=== PATIENT | female | born 1940 | race Two or more races ===

== ENCOUNTER 2019-10-31 05:20 | Day surgery (SDC) | payer OTHER | END 2019-10-31 12:50 | disposition home or self-care (01) | LOC: AMB-ENDOS 05:20 → ADM 12:45 → AMB-ENDOS 12:45 | PROVIDERS: ATTEND Surgery | DX: D13.1 Benign neoplasm of stomach (principal); D13.2 Benign neoplasm of duodenum; K29.50 Unspecified chronic gastritis without bleeding; K44.9 Diaphragmatic hernia without obstruction or gangrene ==

== ENCOUNTER 2021-11-08 06:05 | Day surgery (SDC) | payer OTHER | END 2021-11-08 12:40 | disposition home or self-care (01) | LOC: AMB-ENDOS 06:05 | PROVIDERS: ATTEND Surgery | DX: K29.70 Gastritis, unspecified, without bleeding (principal); K29.50 Unspecified chronic gastritis without bleeding; K44.9 Diaphragmatic hernia without obstruction or gangrene; K21.9 Gastro-esophageal reflux disease without esophagitis; Z88.8 Allergy status to other drugs, medicaments and biological substances; I10 Essential (primary) hypertension; E11.9 Type 2 diabetes mellitus without complications; E03.9 Hypothyroidism, unspecified; I25.10 Atherosclerotic heart disease of native coronary artery without angina pectoris; Z79.84 Long term (current) use of oral hypoglycemic drugs; Z20.822 Contact with and (suspected) exposure to COVID-19 ==

== ENCOUNTER 2024-04-17 07:24 | Outpatient (CLI) | payer OTHER | END 2024-04-17 07:26 | disposition home or self-care (01) | LOC: TOM 07:24 | PROVIDERS: ATTEND Surgery | DX: K43.2 Incisional hernia without obstruction or gangrene (principal) | CPT/HCPCS: 74177; Q9965 ==

== ENCOUNTER 2024-08-05 06:34 | Day surgery (SDC) | payer OTHER ==
[2024-08-05] MEDS ORDERED: NALOXONE HCL 0.4 MG/ML AMPUL IV STA (08:31)
[2024-08-05] MEDS ORDERED: FLUMAZENIL 0.5 MG/5 ML ML IV STA (08:31)
[2024-08-05] MEDS ORDERED: DIPHENHYDRAMINE HCL 50 MG/ML VIAL 1ML IV ONE (08:45)
[2024-08-05] MEDS ORDERED: fentaNYL CITRATE 50 MCG/ML AMPUL IV PUSH ONE (08:45)
[2024-08-05] MEDS ORDERED: MIDAZOLAM HCL 2 MG/2 ML VIAL IV ONE (08:45)
== END 2024-08-05 11:10 | disposition home or self-care (01) ==
LOC: AMB-ENDOS 06:34 → CIR.AMB 14:00
PROVIDERS: ATTEND Surgery
DX: K21.9 Gastro-esophageal reflux disease without esophagitis (principal); K44.9 Diaphragmatic hernia without obstruction or gangrene; K31.7 Polyp of stomach and duodenum; K29.60 Other gastritis without bleeding; K63.5 Polyp of colon; K57.30 Diverticulosis of large intestine without perforation or abscess without bleeding; R19.4 Change in bowel habit; Z88.1 Allergy status to other antibiotic agents; Z88.6 Allergy status to analgesic agent